=== PATIENT | female | born 1995 | race Caucasian/White ===

== ENCOUNTER 2019-01-03 17:00 | Emergency (ER) | payer OTHER, BC | END 2019-01-03 21:45 | disposition home or self-care (01) | LOC: FTE 17:00 | DX: S06.0X0A Concussion without loss of consciousness, initial encounter (principal); R55 Syncope and collapse; J45.909 Unspecified asthma, uncomplicated; W01.198A Fall on same level from slipping, tripping and stumbling with subsequent striking against other object, initial encounter; Y92.9 Unspecified place or not applicable | CPT/HCPCS: 81025; 93005; 99283-25 ==